=== PATIENT | female | born 1950 | race Caucasian/White ===

== ENCOUNTER → 2016-11-17 | Outpatient (CLI) | payer BC ==
--- NOTE | 2016-11-17 14:00 | DIAGNOSTIC IMAGING REPORT ---
MRI OF THE RIGHT KNEE WITHOUT CONTRAST CLINICAL HISTORY: Medial right knee pain. COMPARISON STUDY: Right knee radiographs June 08, 2016. TECHNIQUE: Utilizing a 1.5 Rebecca magnet and dedicated coil, multiplanar, multiecho imaging of the right knee was performed without intravenous or intraarticular contrast. FINDINGS: Alignment of the right knee is anatomic. Extensor mechanism is intact. The anterior and posterior cruciate ligaments are intact. The medial collateral ligament and lateral collateral ligament complex are also intact. There is no marrow replacement. There is no fracture. There is a small joint effusion and a 5.4 x 2.1 x 0.2 cm popliteal cyst that may contain a few tiny loose bodies. There is moderate cartilage loss of the medial patellar cartilage. There is mild to moderate chondrosis within the trochlear cartilage. There is severe chondrosis within the medial compartment with near complete loss of the cartilage within the medial femoral condyle and medial tibial plateau. Subchondral signal abnormality is noted within the medial femoral condyle. There is moderate chondrosis of the lateral tibial plateau. There is no lateral meniscal tear. There is a complex tear of the posterior horn/root junction of the medial meniscus. IMPRESSION: 1. Severe chondrosis within the medial compartment with near complete loss of the cartilage within the medial compartment. Moderate chondrosis of the medial patellar cartilage and moderate chondrosis of the lateral tibial plateau. 2. Intact cruciate and collateral ligaments. 3. Small joint effusion and small popliteal cyst. 4. Complex tear of the posterior horn/root junction of the medial meniscus. Electronically signed by: Charlie Bailon M.D. 11/17/2016 1:59 PM Dictated Date/Time: 11/17/2016 1:25 PM
== END | disposition home or self-care (01) ==
LOC: C.MRI 12:21
PROVIDERS: ATTEND Physical Medicine & Rehabilitation Sports Medicine
DX: M25.561 Pain in right knee (principal)

== ENCOUNTER → 2016-11-22 | Outpatient (CLI) | payer BC | END | disposition home or self-care (01) | LOC: C.RDSM 12:00 | PROVIDERS: ATTEND Physical Medicine & Rehabilitation Sports Medicine | DX: M25.561 Pain in right knee (principal) ==

== ENCOUNTER → 2017-09-18 | Outpatient (CLI) | payer OTHER ==
[2017-09-18 13:10] LABS: BASO % 0.2 %; BASO ABS # 0.01 K/uL (0-0.2); COMPLETE YES; EOS % 1.3 %; HEMATOCRIT 42.8 % (37-47); IG% 0.2 %; LYMPH % 31.4 %; LYMPH ABS # 1.91 K/uL (1.2-3.4); MEAN CELL VOLUME 90.1 fL (80-100); MEAN CORPUSCULAR HEMOGLOBIN 31.4 pg (25-34); MEAN CORPUSCULAR HGB CONC 34.8 g/dl (32-36); MEAN PLATELET VOLUME 10.6 fL (7.4-10.4); MONO % 7.7 %; NEUT % 59.2 %; PLATELET COUNT 208 K/uL (130-400); RED BLOOD COUNT 4.75 M/uL (4.2-5.4); WHITE BLOOD COUNT 6.08 K/uL (4.8-10.8)
[2017-09-20 15:20] LABS: ALPHA-1-ANTITRYPSIN TC 67710E 121 MG/DL (83-199); IGE RECEPTOR AB(ANTI-IgE IgG)* 7 ng/mL (<168); IMMUNOGLOBULIN E TC 24620E 20 KU/L (<115)
== END | disposition home or self-care (01) ==
LOC: C.LAB1850 11:37
PROVIDERS: ATTEND Internal Medicine Pulmonary Disease
DX: J40 Bronchitis, not specified as acute or chronic (principal)

== ENCOUNTER → 2017-10-02 | Outpatient (CLI) | payer OTHER ==
[~2017-10-02] MED LIST: OPTIRAY 320 IV PRN
--- NOTE | 2017-10-02 13:11 | DIAGNOSTIC IMAGING REPORT ---
CHEST CT WITH CONTRAST CT DOSE: 243.20 mGy.cm HISTORY: Acute bronchitis with wheezing BRONCHITIS TECHNIQUE: Multiaxial CT images of the chest were performed following the intravenous administration of contrast. A dose lowering technique was utilized adhering to the principles of ALARA. COMPARISON: None. FINDINGS: Thyroid is homogeneous. No definite pathologically enlarged lymph nodes of the chest identified. The heart appears to be within the upper limits of normal in size. There is mild mixed plaquing of the thoracic aorta. The proximal portions of the imaged great vessels are patent. No aortic dissection or aneurysm identified. The opacified pulmonary arterial tree is unremarkable. There is no pneumothorax or pleural effusion. Subsegmental subpleural reticular opacities of the lung bases suggest areas of atelectasis. Minimal scattered areas of mosaic attenuation are seen within the bilateral lungs suggesting areas of air trapping, notably the lower lobes and lingula. There is a mucous plugging are noted within the right middle lobe with linear consolidation of the medial segment right middle lobe. There are groundglass and tree-in-bud nodular opacities also noted within the lateral segment right middle lobe towards the base. Peripheral linear subsegmental opacity of the right lower lobe abutting the pleura on image 149 series 4 suggests atelectasis or scarring. Imaged upper abdominal structures demonstrate no acute abnormality. Soft tissues are unremarkable. Multilevel endplate degenerative changes and facet arthrosis of the thoracic spine. IMPRESSION: 1. Mild mucous plugging with linear consolidative opacities of the right middle lobe likely reflecting atelectasis. Additionally, there are subtle groundglass and tree-in-bud nodular opacities of the lateral segment right middle lobe suggesting pneumonitis. 2. Areas of mosaic attenuation are noted within the lower lobes and lingula suggesting air trapping. Electronically signed by: Yemi Long M.D. 10/02/2017 1:10 PM Dictated Date/Time: 10/02/2017 1:01 PM
== END | disposition home or self-care (01) ==
LOC: C.CTS 12:43
PROVIDERS: ATTEND Internal Medicine Pulmonary Disease
DX: J40 Bronchitis, not specified as acute or chronic (principal)

== ENCOUNTER → 2018-06-04 | Outpatient (CLI) | payer OTHER ==
--- NOTE | 2018-06-04 11:53 | DIAGNOSTIC IMAGING REPORT ---
CHEST 2 VIEWS ROUTINE CLINICAL HISTORY: 67 years-old Female presenting with J18.9 Pneumonia, community [id number]. TECHNIQUE: PA and lateral views of the chest were obtained. COMPARISON: Chest CT from 10/02/2017. FINDINGS: Cardiomediastinal silhouette normal apart from prominence of the right hilum may be vascular in etiology. Vague opacity in the region of the right middle lobe may correspond with prior cicatrizing atelectasis of the medial segment of the right middle lobe. No new focal opacity. No pleural effusion or pneumothorax. Osseous structures normal. Upper abdomen normal. IMPRESSION: 1. Right middle lobe infiltrate may correspond with chronic cicatrizing atelectasis, however, it is difficult to exclude superimposed right middle lobe infiltrate. If there is continuing clinical concern, chest CT to be obtained. Electronically signed by: Tyler Sanchez M.D. 06/04/2018 11:52 AM Dictated Date/Time: 06/04/2018 11:49 AM
== END | disposition home or self-care (01) ==
LOC: C.RAD1850 11:40
PROVIDERS: ATTEND Physician Assistant
DX: J18.9 Pneumonia, unspecified organism (principal)

== ENCOUNTER → 2018-06-06 | Outpatient (CLI) | payer OTHER ==
--- NOTE | 2018-06-06 08:16 | DIAGNOSTIC IMAGING REPORT ---
CHEST CT WITH CONTRAST CT DOSE: 328.89 mGycm HISTORY: Abnormal chest x-ray. Pneumonia. TECHNIQUE: Multiaxial CT images of the chest were performed following the intravenous administration of contrast. A dose lowering technique was utilized adhering to the principles of ALARA. COMPARISON: Chest CT 10/02/2017. FINDINGS: The central airways are patent. Partial opacification of the distal right middle lobe bronchi. No pleural effusions. No pneumothorax. There are multiple small scattered patchy airspace opacities consistent with a multifocal pneumonia. There is also a small focus of dense consolidation within the right middle lobe which has slightly progressed. No suspicious lytic or blastic osseous lesions. The visualized liver, spleen, and adrenal glands are unremarkable. A few prominent right hilar lymph nodes are likely reactive. The heart is normal in size. Normal caliber thoracic aorta with no evidence for dissection. The main pulmonary arteries are patent. IMPRESSION: Multiple small scattered patchy airspace opacities consistent with a multifocal pneumonia. A small focus of dense consolidation within the right middle lobe has slightly progressed. There is partial opacification of the distal right middle lobe bronchi. [address] follow up is recommended to ensure resolution. Electronically signed by: Ty German M.D. 06/06/2018 8:15 AM Dictated Date/Time: 06/06/2018 8:02 AM
[2018-06-06 09:55] LABS: BLOOD UREA NITROGEN 10 mg/dl (7-18); CREATININE 0.63 mg/dl (0.60-1.20)
== END | disposition home or self-care (01) ==
LOC: C.CTS 07:26
PROVIDERS: ATTEND Physician Assistant
DX: R93.8 Abnormal findings on diagnostic imaging of other specified body structures (principal); J18.9 Pneumonia, unspecified organism